=== PATIENT | female | born 1980 | race Caucasian/White ===

== ENCOUNTER 2020-01-20 10:28 | Inpatient (IN) ==
[2020-01-20 11:54] LABS: Appearance Urine Turbid (Clear); Blood Urine Negative (Negative); Color Urine Dark Yellow; Epithelial Cell Urine Auto >30 /lpf (0-5); Glucose Urine UA Negative (Negative); Ketones Urine Trace (Negative); Leukocyte Esterase Urine Negative (Negative); Nitrite Urine Negative (Negative); Protein Urine 2+ (Negative); Specific Gravity Urine 1.032 (1.000-1.030); Urobilinogen Urine Negative (Negative)
[2020-01-20 12:17] LABS: Amphetamines+Metham, Urine Pos (Neg); Barbiturates, Urine Neg (Neg); Benzodiazepine, Urine Pos (Neg); Bilirubin Urine Negative (Negative); Cocaine, Urine Neg (Neg); Ictotest Urine Negative (Negative); MDMA (Ecstacy), Urine Pos (Neg); Methadone, Urine Neg (Neg); Opiate, Urine Neg (Neg); Phencyclidine, Urine Neg (Neg)
[2020-01-20 12:18] LABS: Calcium Oxalate Crystals Urine Present (None Prsent); RBC Urine Automated 0-4 /hpf (0-4)
[2020-01-20 12:19] LABS: Bacteria Urine Automated 2+ (Negative)
[2020-01-20 12:20] LABS: Basophils # (auto) 0.03 K/uL (0-0.2); Basophils % (auto) 0.3 %; Eosinophils # (auto) 0.09 K/uL (0-0.5); Eosinophils % (auto) 0.9 %; Hemoglobin 13.2 g/dL (12.0-16.0); Immature Granulocytes # (auto) 0.02 K/uL (0.00-0.02); Immature Granulocytes % (auto) 0.2 %; Lymphocytes # (auto) 3.27 K/uL (1.2-3.4); Lymphocytes % (auto) 31.8 %; Mean Corpuscular Hemoglobin 28.5 pg (25-34); Mean Corpuscular Hgb Conc 34.7 g/dL (32-36); Mean Corpuscular Volume 82.1 fL (80-100); Mean Platelet Volume 9.3 fL (7.4-10.4); Monocytes # (auto) 0.62 K/uL (0.11-0.59); Neutrophils # (auto) 6.24 K/uL (1.4-6.5); Neutrophils % (auto) 60.8 %; Platelet Count 350 K/uL (130-400); Red Blood Count 4.63 M/uL (4.2-5.4); White Blood Count 10.27 K/uL (4.8-10.8)
[2020-01-20 12:43] LABS: Albumin Level 3.6 gm/dl (3.4-5.0); BUN Creatinine Ratio 10.9 (10-20); Calcium 9.3 mg/dl (8.5-10.1); Creatinine Clr Calc Pharmacy 57.7 ml/min; Est GFR (African American) 59.4; Est GFR (Non-African American) 51.3; Potassium 3.7 mmol/L (3.5-5.1)
[2020-01-20 12:53] LABS: Albumin Globulin Ratio 0.9 (0.9-2); Bilirubin,Total 0.5 mg/dl (0.2-1); Thyroid Stimulating Hormone 1.73 uIu/ml (0.300-4.500); Total Protein 7.6 gm/dl (6.4-8.2)
[2020-01-20 12:55] LABS: Acetaminophen < 2 ug/ml (10-30)
[2020-01-20 12:56] LABS: Salicylate 2.1 mg/dl (2.8-20)
[2020-01-20] MEDS ORDERED: LORazepam 1 MG TAB PO STA (14:23)
--- NOTE | 2020-01-20 14:47 | Emergency Department Note ---
History of Present Illness General Chief complaint: Mental Health Evaluation Stated complaint: SUICIDAL THOUGHTS Time Seen by Provider: 01/20/20 10:43 History of Present Illness Provider complaint: Suicidal ideation Onset (ago): day(s) 2 Maximum Pain Intensity: 0 39-year-old female presents emergency department suicidal homicidal ideation. Patient reports that her son who is 5 months old was found a week ago and they had the recently. She is reports since then she has been extremely depressed and feeling anxious. She is reported suicidal and homicidal ideation. Home Medications Home Medications Medication Instructions Recorded Confirmed Type Control Pill 1 tab PO DAILY 01/20/20 History buprenorphine-naloxone 1.5 tab SUBLINGUAL DAILY 01/20/20 01/20/20 History bupropion HCl [Wellbutrin SR] 150 mg PO DAILY 01/20/20 01/20/20 History duloxetine 60 mg PO DAILY 01/20/20 01/20/20 History pregabalin 100 mg PO TID 01/20/20 01/20/20 History Past Med/Surg History Medical History (Updated 01/20/20 @ 17:10 by Dmitry López) Anxiety Depression No pertinent family history Preeclampsia Surgical History (Updated 01/20/20 @ 14:46 by Dmitry López) S/P section Social History Feels Safe at Home: Yes Smoking Status: Current every day smoker Review of Systems A total of 10 systems reviewed and were otherwise negative Physical Exam Vital Signs Vital Signs - 24 hr 01/20/20 10:31 01/20/20 12:28 01/20/20 15:20 Temperature 37.0 C Temperature Source Oral Pulse Rate 100 H Pulse Rate [Finger] 100 H 93 H Respiratory Rate 18 17 22 Respiratory Depth Normal Blood Pressure 110/71 Blood Pressure [Left Arm] 166/125 H 140/82 Blood Pressure Mean 84 Blood Pressure Mean [Left Arm] 138 101 Blood Pressure Position [Left Arm] Sitting Pulse Oximetry 97 99 98 Oxygen Delivery Method Room Air Room Air Room Air Sepsis Recent Fever Within 48 Hours No Sepsis New/Unexplained Change in Mental Status No Sepsis Action Taken by Nursing No Action Required Physical Exam HENT: Exam performed. -Head: Normocephalic and atraumatic. -Right Ear: External ear normal. No mastoid tenderness. -Left Ear: External ear normal. No mastoid tenderness. -Mouth/Throat: The oropharynx is clear and moist. No trismus in the jaw. No dental abscesses or uvula swelling. No oropharyngeal exudate or tonsillar abscesses. EYES: Conjunctivae and EOM are normal. Pupils are equal, round, and reactive to light. Right eye exhibits no discharge. Left eye exhibits no discharge. No scleral icterus. NECK: Normal range of motion. Neck supple. No JVD present. No spinous process tenderness present. No carotid bruit present. No rigidity. No tracheal deviation and normal range of motion present. No Brudzinski's sign and no Kernig's sign noted. CV: Tachycardic rate, regular rhythm, normal heart sounds and intact distal pulses. There is no peripheral edema. Palpable radial pulses bue. PULM/CHEST: Effort normal and breath sounds normal. No respiratory distress. No stridor. She has no wheezes. She has no rales. -Chest Wall: She exhibits no tenderness. ABD: The abdomen is soft. Bowel sounds are normal. She has no distension. No mass is present. There is no tenderness. There is no rebound, no guarding, no Samaniego's sign and no tenderness at McBurney's point. Rovsig negative MUSC/SKEL: Normal range of motion. There is no peripheral edema, tenderness or deformity. LYMPH: No cervical adenopathy. NEURO: She is alert and oriented to person, place, and time. She has normal strength. No cranial nerve deficit or sensory deficit. Coordination and gait normal. GCS eye subscore is 4. GCS verbal subscore is 5. GCS motor subscore is 6. Cerebellar tests wnl. SKIN: Skin is warm and dry. She is not diaphoretic. PSYCH: Patient is extremely depressed. She is suicidal and homicidal. Patient is crying uncontrollably. Course Course 1145: The patient was evaluated in room A5. A complete history and physical exam was performed. 1515: Vital signs stable. Patient medically cleared. Awaiting psychiatric evaluation/disposition. Patient placed in observation at this time. 1645: Vital signs stable. Patient admitted to the 3 S. psychiatric inpatient unit. Administered Medications Discontinued Medications Lorazepam (Ativan) 1 mg PO NOW STA Stop: 01/20/20 14:24 Last Admin: 01/20/20 14:34 Dose: 1 mg Documented by: [id number] Medical Decision Making Laboratory Data Result diagrams: 01/20/20 12:03 01/20/20 12:03 Lab Results 01/20/20 01/20/20 01/20/20 Range/Units 11:42 11:42 12:03 WBC 10.27 (4.8-10.8) K/uL RBC 4.63 (4.2-5.4) M/uL Hgb 13.2 (12.0-16.0) g/dL Hct 38.0 (37-47) % MCV 82.1 (80-100) fL MCH 28.5 (25-34) pg MCHC 34.7 (32-36) g/dL RDW Std Deviation 39.0 (36.4-46.3) fL RDW Coeff of Jaelyn 13.0 (11.5-14.5) % Plt Count 350 (130-400) K/uL MPV 9.3 (7.4-10.4) fL Immature Gran % (Auto) 0.2 % Neut % (Auto) 60.8 % Lymph % (Auto) 31.8 % [place] % (Auto) 6.0 % Eos % (Auto) 0.9 % Baso % (Auto) 0.3 % Neut # (Auto) 6.24 (1.4-6.5) K/uL Lymph # (Auto) 3.27 (1.2-3.4) K/uL [place] # (Auto) 0.62 H (0.11-0.59) K/uL Eos # (Auto) 0.09 (0-0.5) K/uL Baso # (Auto) 0.03 (0-0.2) K/uL Immature Gran # (Auto) 0.02 (0.00-0.02) K/uL Sodium (136-145) mmol/L Potassium (3.5-5.1) mmol/L Chloride (98-107) mmol/L Carbon Dioxide (21-32) mmol/L Anion Gap (3-11) BUN (7-18) mg/dl Creatinine (0.6-1.2) mg/dl Est Cr Clr Drug Dosing ml/min Est GFR ( Amer) Est GFR (Non-Af Amer) BUN/Creatinine Ratio (10-20) Glucose (70-99) mg/dl Calcium (8.5-10.1) mg/dl Total Bilirubin (0.2-1) mg/dl AST (15-37) U/L ALT (12-78) U/L Alkaline Phosphatase (45-117) U/L Total Protein (6.4-8.2) gm/dl Albumin (3.4-5.0) gm/dl Globulin (2.5-4.0) gm/dl Albumin/Globulin Ratio (0.9-2) TSH (0.300-4.500) uIu/ml Urine Color Dark Yellow Urine Appearance Turbid A (Clear) Urine pH 5.0 (4.5-7.5) Ur Specific [place] 1.032 H (1.000-1.030) Urine Protein 2+ H (Negative) Urine Glucose (UA) Negative (Negative) Urine Ketones Trace H (Negative) Urine Blood Negative (Negative) Urine Nitrite Negative (Negative) Urine Bilirubin Negative (Negative) Urine Urobilinogen Negative (Negative) Ur Leukocyte Esterase Negative (Negative) Urine WBC (Auto) 1-5 (0-5) /hpf Urine RBC (Auto) 0-4 (0-4) /hpf U Hyaline Cast (Auto) Not Reportable U Epithel Cells (Auto) >30 H (0-5) /lpf Urine Bacteria (Auto) 2+ H (Negative) Urine Crystals Not Reportable Calcium Oxalate Crystal Present A (None Prsent) Salicylates (2.8-20) mg/dl Urine Opiates Screen Neg (Neg) Ur Methadone, Qual Neg (Neg) Acetaminophen (10-30) ug/ml Urine Barbiturates Neg (Neg) Ur Phencyclidine (PCP) Neg (Neg) U Amphetamin/Meth Scrn Pos H (Neg) MDMA (Ecstasy) Screen Pos H (Neg) U Benzodiazepines Scrn Pos H (Neg) Ur Cocaine Metabolite Neg (Neg) U Marijuana (THC) Screen Neg (Neg) Ethyl Alcohol mg/dL (0-3) mg/dl 01/20/20 01/20/20 01/20/20 Range/Units 12:03 12:03 12:03 WBC (4.8-10.8) K/uL RBC (4.2-5.4) M/uL Hgb (12.0-16.0) g/dL Hct (37-47) % MCV (80-100) fL MCH (25-34) pg MCHC (32-36) g/dL RDW Std Deviation (36.4-46.3) fL RDW Coeff of Jaelyn (11.5-14.5) % Plt Count (130-400) K/uL MPV (7.4-10.4) fL Immature Gran % (Auto) % Neut % (Auto) % Lymph % (Auto) % [place] % (Auto) % Eos % (Auto) % Baso % (Auto) % Neut # (Auto) (1.4-6.5) K/uL Lymph # (Auto) (1.2-3.4) K/uL [place] # (Auto) (0.11-0.59) K/uL Eos # (Auto) (0-0.5) K/uL Baso # (Auto) (0-0.2) K/uL Immature Gran # (Auto) (0.00-0.02) K/uL Sodium 138 (136-145) mmol/L Potassium 3.7 (3.5-5.1) mmol/L Chloride 104 (98-107) mmol/L Carbon Dioxide 26 (21-32) mmol/L Anion Gap 8.0 (3-11) BUN 14 (7-18) mg/dl Creatinine 1.30 H (0.6-1.2) mg/dl Est Cr Clr Drug Dosing 57.7 ml/min Est GFR ( Amer) 59.4 Est GFR (Non-Af Amer) 51.3 BUN/Creatinine Ratio 10.9 (10-20) Glucose 97 (70-99) mg/dl Calcium 9.3 (8.5-10.1) mg/dl Total Bilirubin 0.5 (0.2-1) mg/dl AST 14 L (15-37) U/L ALT 24 (12-78) U/L Alkaline Phosphatase 149 H (45-117) U/L Total Protein 7.6 (6.4-8.2) gm/dl Albumin 3.6 (3.4-5.0) gm/dl Globulin 4.0 (2.5-4.0) gm/dl Albumin/Globulin Ratio 0.9 (0.9-2) TSH 1.730 (0.300-4.500) uIu/ml Urine Color Urine Appearance (Clear) Urine pH (4.5-7.5) Ur Specific [place] (1.000-1.030) Urine Protein (Negative) Urine Glucose (UA) (Negative) Urine Ketones (Negative) Urine Blood (Negative) Urine Nitrite (Negative) Urine Bilirubin (Negative) Urine Urobilinogen (Negative) Ur Leukocyte Esterase (Negative) Urine WBC (Auto) (0-5) /hpf Urine RBC (Auto) (0-4) /hpf U Hyaline Cast (Auto) U Epithel Cells (Auto) (0-5) /lpf Urine Bacteria (Auto) (Negative) Urine Crystals Calcium Oxalate Crystal (None Prsent) Salicylates 2.1 L (2.8-20) mg/dl Urine Opiates Screen (Neg) Ur Methadone, Qual (Neg) Acetaminophen < 2 L (10-30) ug/ml Urine Barbiturates (Neg) Ur Phencyclidine (PCP) (Neg) U Amphetamin/Meth Scrn (Neg) MDMA (Ecstasy) Screen (Neg) U Benzodiazepines Scrn (Neg) Ur Cocaine Metabolite (Neg) U Marijuana (THC) Screen (Neg) Ethyl Alcohol mg/dL < 3.0 (0-3) mg/dl MDM Narrative Observation note Indication: Psych eval/placement Patient, with history of anxiety, depression, was first seen at 1145 hrs and the observation time began at 1515 hrs and was necessary in order to have psych evaluation completed . Upon re-evaluation, 90 minutes of observation revealed that the patient should be admitted for inpatient psychiatric treatment. Disposition date and time January 20, 2020 1645. Impression & Plan Depression, Suicidal ideation Discharge Plan Visit Data Chief Complaint: Mental Health Evaluation Stated Complaint: SUICIDAL THOUGHTS ED Provider: Dmitry López Discharge Problem: Depression, Suicidal ideation Forms Stand Alone Forms: [facility], Suicide Prevention Resources Prescriptions Prescriptions: No Action bupropion HCl [Wellbutrin SR] 150 mg Tablet Sustained-Release 12 Hr 150 mg PO DAILY RF: 0 Control Pill 1 tab PO DAILY RF: 0 buprenorphine-naloxone 8-2 mg Tablet, Sublingual 1.5 tab SUBLINGUAL DAILY RF: 0 pregabalin 100 mg Capsule 100 mg PO TID RF: 0 duloxetine 60 mg Capsule,Delayed Release(Dr/Ec) 60 mg PO DAILY RF: 0 Referrals Referrals: Guicho Cross MD [Primary Care Provider] - Discharge Problem: Depression Qualifiers: Depression Type: major depressive disorder Major depression recurrence: unspecified whether recurrent Active/Remission status: currently active Major depression episode severity: severe Psychotic features: without psychotic features Qualified Code(s): F32.2 - Major depressive disorder, single episode, severe without psychotic features
[2020-01-20] MEDS ORDERED: ALUMINUM/MAGNESIUM SUSP 30 ML UDC PO PRN (16:29)
[2020-01-20] MEDS ORDERED: MAGNESIUM HYDROXIDE SUSP 30 ML UDC PO PRN (16:29)
[2020-01-20] MEDS ORDERED: SODIUM CHLORIDE 0.65% NA SOLN 45 ML (OCEAN) PRN (16:29)
[2020-01-20] MEDS ORDERED: BISMUTH SUBSALICYLATE PER ML OMNICELL CHARGE PO PRN (16:29)
[2020-01-20] MEDS ORDERED: ACETAMINOPHEN 325 MG TAB PO PRN (16:29)
[2020-01-20] MEDS ORDERED: PATIENT'S ALLERGY INFO NEEDS ENTERED SCH (16:45)
[2020-01-20] MEDS: PREGABALIN 100 MG CAP PO SCH (20:41)
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
[2020-01-21] MEDS ORDERED: BuPROPion SR 150 MG TABCR PO SCH (09:00)
[2020-01-21] MEDS ORDERED: DULOXETINE HCL 60 MG CAP PO SCH (09:00)
[2020-01-21] MEDS: PREGABALIN 100 MG CAP PO SCH ×3 (09:08→21:56)
[2020-01-21] MEDS: BuPROPion XL 150 MG TABCR PO SCH (09:09)
[2020-01-21] MEDS: BUPRENORPHINE/NALOXONE 8/2 MG TAB SL SCH (09:10)
[2020-01-21] MEDS ORDERED: IBUPROFEN 600 MG TAB PO PRN (14:39)
[2020-01-22] MEDS: BuPROPion XL 150 MG TABCR PO SCH (08:42)
[2020-01-22] MEDS: BUPRENORPHINE/NALOXONE 8/2 MG TAB SL SCH (08:42)
[2020-01-22] MEDS: PREGABALIN 100 MG CAP PO SCH (08:42)
--- NOTE | 2020-01-22 11:46 | Psychiatric Progress Note ---
Date of Service January 22, 2020 Impression / Recommendations Impression 39-year-old female with a history of substance abuse and depression who presents with worsening mood and suicidal thoughts in the context of the of her 5-month-old son 2 weeks ago. She presents with some manic symptoms, including racing thoughts and poor sleep, but does not endorse other symptoms of danielito and denies any history of manic episodes. Her UDS is positive for amphetamine/methamphetamine, but she denies substance use and says this is a false positive, and that her drug screens are always positive for meth. She has a history of depression and has been treated with antidepressants in the past, most recently on Wellbutrin XL 150 mg daily. Prior to titrating that further, I would like to get collateral information from her family and records from her current outpatient providers to clarify her diagnoses. It is possible that the manic symptoms are her emotional/grief reaction or related to occult substance use, but could also signify an undiagnosed bipolar disorder. She is on multiple centrally acting medications including Suboxone and pregabalin. Inpatient treatment is medically necessary due to the severity of her symptoms and risk for suicide if discharged. (1) Depression: 01/20 -continue bupropion XL 150 mg daily. -Get collateral information to help clarify diagnosis, as well as outpatient records. -Offer hydroxyzine as needed for anxiety. -Encourage group attendance and participation, work on healthy coping skills and discharge safety plan. -Family meeting with supports. Clarify where patient will be staying after discharge, and refer for outpatient treatment. (2) Opiate addiction: 01/20 - [facility] and [facility], coordinate care. -F/u on UDS + amphetamine/methamphetamine, MDMA, and benzodiazepines. We will avoid benzodiazepines here given concomitant use of multiple other central nervous system depressants, including Suboxone, and risk of respiratory d epression. (3) Chronic pain: 01/20 -continue pregabalin. Get records from PCP. Encourage gentle exercises, stretching, may use heat/ice pads if needed. Tylenol as needed for breakthrough pain. Risk Factors Assessment Male: No : Yes Do You Have Access To A Gun?: No Health Problems: Yes Mental Health Diagnoses: Yes Substance Use Disorders: Yes Previous Attempt: No Family History of Suicide: No Previous Psychiatric Hospitalization: No Hopelessness: No Smoker: Yes Protective Factors Assessment Confucianist Beliefs: No : No Responsible for Young Children: No Employed: No Stable Relationships: No Supportive Family: Yes Good Rapport with Provider: Yes Interval History Identifying Information KELLY SOLOMON is a 39-year-old F who currently lives in [place] with her 17-year-old daughter, has a history of depression and substance abuse, and was admitted on 01/20/20 16:29 on a 201 voluntary commitment for depression and suicidal ideation. Chief Complaint "[]". Review of Systems Notes Constitutional: [denied] Cardiovascular: [denied] Respiratory: [denied] Gastrointestinal: [denied] Neurological: [denied] Psychiatric: [denies symptoms other than stated above] Total of at least 10 systems reviewed, pertinent positives as above and in HPI. Sleep Information Total Hours of Sleep: 7.25 Sleep Comments: pt on q-15 minute checks Meal Information Percent Meal Consumed - Breakfast: 40 Percent Meal Consumed - Lunch: 50 Percent Meal Consumed - Dinner: 80 Nutrition Comment: pt. has upset stomach and poor appetite for several weeks. Ate cereal after a few bites of bkfst Subjective Subjective Patient was seen & assessed and interval progress reviewed with treatment team. Physical Exam Vital Signs (Past 24 Hours) Last Vital Signs Temp 36.7 C 01/22/20 06:37 Pulse 97 H 01/22/20 06:37 Resp 18 01/22/20 06:37 BP 135/82 01/22/20 06:37 Pulse Ox 95 01/20/20 17:27 Results & Data ([facility]) Current Inpatient Medications Current Inpatient Medications: Current Inpatient Medications Acetaminophen (Tylenol) 650 mg PO Q4H PRN PRN Reason: Headache or Minor Fever Stop: 02/19/20 16:28 Last Admin: 01/21/20 11:39 Dose: 650 mg Documented by: Al Hydrox/Mg Hydrox/Simethicone (Maalox) 30 ml PO Q4H PRN PRN Reason: GI Upset Stop: 02/19/20 16:28 Bismuth Subsalicylate (Kaopectate) 15 ml PO PRN PRN PRN Reason: Loose Stool Stop: 02/19/20 16:28 Buprenorphine/Naloxone (Suboxone 8 Mg/2 Mg) 1.5 tab SL DAILY SHINE Stop: 02/20/20 08:59 Last Admin: 01/22/20 08:42 Dose: 1.5 tab Documented by: Bupropion HCl (Wellbutrin-Xl) 150 mg PO QAM SHINE Stop: 02/20/20 08:59 Last Admin: 01/22/20 08:42 Dose: 150 mg Documented by: Hydroxyzine HCl (Vistaril) 50 mg PO HSZ PRN PRN Reason: Insomnia Stop: 02/19/20 16:28 Last Admin: 01/21/20 21:56 Dose: 50 mg Documented by: Hydroxyzine HCl (Vistaril) 25 mg PO Q4H PRN PRN Reason: Anxiety Stop: 02/19/20 16:28 Last Admin: 01/20/20 19:10 Dose: 25 mg Documented by: Ibuprofen (Motrin) 600 mg PO Q6H PRN PRN Reason: Pain Stop: 02/20/20 14:44 Last Admin: 01/21/20 17:41 Dose: 600 mg Documented by: Magnesium Hydroxide (Milk Of Magnesia) 30 ml PO DAILY PRN PRN Reason: Constipation Stop: 02/19/20 16:28 Pregabalin (Lyrica) 100 mg PO TID SHINE Stop: 02/19/20 20:59 Last Admin: 01/22/20 08:42 Dose: 100 mg Documented by: Sodium Chloride ([place] Nasal) 1 - 2 sprays NA PRN PRN PRN Reason: Nasal Dryness/Congestion Stop: 02/19/20 16:28 Post Discharge Appointments Primary Care Physician Name Of Family Doctor: Family Medicine at [facility] - Dr. Cross Primary Care Provider Appointment Comment: [address], [address], [place] [address] Other #1: Name of Aftercare Appointment: [facility] - Jenni Peres Phone Number of Aftercare Appointment: [phone] Aftercare Appointment Comment: [address], [place] [address] Contact Information Discharge Discharge Address: [address] [place] [address], [place] [facility] (1) Depression Active/Remission status: currently active Depression Type: major depressive disorder Major depression episode severity: severe Major depression recurrence: unspecified whether recurrent Psychotic features: without psychotic features Qualified Code(s): F32.2 - Major depressive disorder, single episode, severe without psychotic features
--- NOTE | 2020-01-22 12:34 | Communication Note ---
Date of Service: January 22, 2020 Records reviewed from [facility], Out[facility] in [place]: Most recent appointment 01/17/2020. Diagnoses include opioid dependence, severe, depressive disorder, anxiety disorder. Patient reported mourning her son who unexpectedly, and family turmoil. She said that she was staying with her father, and looking for inpatient psychiatric units to go to. Her drug screen results from 01/17/2020 were positive for benzodiazepines, cocaine, and buprenorphine. On her 12/23/2019 visit, she reported caring for her son and 2 daughters, and denied any substance use. Her drug screen was positive for cocaine and buprenorphine. At her 12/09/2019 visit, she reported she had last used cocaine 3 weeks ago, and had been positive for amphetamines on her most recent visit. Her UDS from 11/25/2019 was positive for amphetamines and buprenorphine.
--- NOTE | 2020-01-22 13:12 | Psychiatric Progress Note ---
Date of Service January 22, 2020 Impression / Recommendations Impression 39-year-old female with a history of substance abuse and depression who presents with worsening mood and suicidal thoughts in the context of the of her 5-month-old son 2 weeks ago. She presents with some manic symptoms, including racing thoughts and poor sleep, but does not endorse other symptoms of danielito and denies any history of manic episodes. Her UDS is positive for amphetamine/methamphetamine, but she denies substance use and says this is a false positive, and that her drug screens are always positive for meth. She has a history of depression and has been treated with antidepressants in the past, most recently on Wellbutrin XL 150 mg daily. Prior to titrating that further, I would like to get collateral information from her family and records from her current outpatient providers to clarify her diagnoses. It is possible that the manic symptoms are her emotional/grief reaction or related to occult substance use, but could also signify an undiagnosed bipolar disorder. She is on multiple centrally acting medications including Suboxone and pregabalin. Inpatient treatment is medically necessary due to the severity of her symptoms and risk for suicide if discharged. (1) Depression: 01/20 -continue bupropion XL 150 mg daily. -Get collateral information to help clarify diagnosis, as well as outpatient records. -Offer hydroxyzine as needed for anxiety. -Encourage group attendance and participation, work on healthy coping skills and discharge safety plan. -Family meeting with supports. Clarify where patient will be staying after discharge, and refer for outpatient treatment. (2) Opiate addiction: 01/20 - [facility], coordinate care. -F/u on UDS + amphetamine/methamphetamine, MDMA, and benzodiazepines. We will avoid benzodiazepines here given concomitant use of multiple other central nervous system depressants, including Suboxone, and risk of respiratory d epression. (3) Chronic pain: 01/20 -continue pregabalin. Get records from PCP. Encourage gentle exercises, stretching, may use heat/ice pads if needed. Tylenol as needed for breakthrough pain. Risk Factors Assessment Male: No : Yes Do You Have Access To A Gun?: No Health Problems: Yes Mental Health Diagnoses: Yes Substance Use Disorders: Yes Previous Attempt: No Family History of Suicide: No Previous Psychiatric Hospitalization: No Hopelessness: No Smoker: Yes Protective Factors Assessment Buddhism Beliefs: No : No Responsible for Young Children: No Employed: No Stable Relationships: No Supportive Family: Yes Good Rapport with Provider: Yes Interval History Identifying Information KELLY SOLOMON is a 39-year-old F who currently lives in [place] with her 17-year-old daughter, has a history of depression and polysubstance abuse (opiates, cocaine, amphetamines), and was admitted on 01/20/20 16:29 on a 201 voluntary commitment for depression and suicidal ideation. Chief Complaint "Good good, then reality sets in, you know?" Review of Systems Sleep Information Total Hours of Sleep: 7.25 Sleep Comments: pt on q-15 minute checks Meal Information Percent Meal Consumed - Breakfast: 40 Percent Meal Consumed - Lunch: 50 Percent Meal Consumed - Dinner: 80 Nutrition Comment: pt. has upset stomach and poor appetite for several weeks. Ate cereal after a few bites of bkfst Subjective Subjective Patient was seen & assessed and interval progress reviewed with treatment team. Staff report she has been labile, sad and tearful at times and other times says she feels "manic" with racing thoughts. She had an extended discussion with the counselor last evening and has been going to some groups. She submitted a 72 hour notice requesting to withdraw from treatment today, and stated she planned to go stay with her father after discharge. Physical Exam Vital Signs (Past 24 Hours) Last Vital Signs Temp 36.7 C 01/22/20 06:37 Pulse 97 H 01/22/20 06:37 Resp 18 01/22/20 06:37 BP 135/82 01/22/20 06:37 Pulse Ox 95 01/20/20 17:27 Results & Data ([facility]) Current Inpatient Medications Current Inpatient Medications: Current Inpatient Medications Acetaminophen (Tylenol) 650 mg PO Q4H PRN PRN Reason: Headache or Minor Fever Stop: 02/19/20 16:28 Last Admin: 01/21/20 11:39 Dose: 650 mg Documented by: Al Hydrox/Mg Hydrox/Simethicone (Maalox) 30 ml PO Q4H PRN PRN Reason: GI Upset Stop: 02/19/20 16:28 Bismuth Subsalicylate (Kaopectate) 15 ml PO PRN PRN PRN Reason: Loose Stool Stop: 02/19/20 16:28 Buprenorphine/Naloxone (Suboxone 8 Mg/2 Mg) 1.5 tab SL DAILY SHINE Stop: 02/20/20 08:59 Last Admin: 01/22/20 08:42 Dose: 1.5 tab Documented by: Bupropion HCl (Wellbutrin-Xl) 150 mg PO QAM SHINE Stop: 02/20/20 08:59 Last Admin: 01/22/20 08:42 Dose: 150 mg Documented by: Hydroxyzine HCl (Vistaril) 50 mg PO HSZ PRN PRN Reason: Insomnia Stop: 02/19/20 16:28 Last Admin: 01/21/20 21:56 Dose: 50 mg Documented by: Hydroxyzine HCl (Vistaril) 25 mg PO Q4H PRN PRN Reason: Anxiety Stop: 02/19/20 16:28 Last Admin: 01/20/20 19:10 Dose: 25 mg Documented by: Ibuprofen (Motrin) 600 mg PO Q6H PRN PRN Reason: Pain Stop: 02/20/20 14:44 Last Admin: 01/21/20 17:41 Dose: 600 mg Documented by: Magnesium Hydroxide (Milk Of Magnesia) 30 ml PO DAILY PRN PRN Reason: Constipation Stop: 02/19/20 16:28 Pregabalin (Lyrica) 100 mg PO TID SHINE Stop: 02/19/20 20:59 Last Admin: 01/22/20 08:42 Dose: 100 mg Documented by: Sodium Chloride (Emmons Nasal) 1 - 2 sprays NA PRN PRN PRN Reason: Nasal Dryness/Congestion Stop: 02/19/20 16:28 Post Discharge Appointments Primary Care Physician Name Of Family Doctor: [facility] at [facility] - Dr. Cross Primary Care Provider Appointment Comment: [address]o [address], [address], [place] [id number] Contact Information Discharge Discharge Address: [address] [place] [address], [place] [id number] (1) Depression Active/Remission status: currently active Depression Type: major depressive disorder Major depression episode severity: severe Major depression recurrence: unspecified whether recurrent Psychotic features: without psychotic features Qualified Code(s): F32.2 - Major depressive disorder, single episode, severe without psychotic features
--- NOTE | 2020-01-22 13:28 | Discharge Summary ---
Date of Service January 22, 2020 History of Present Illness Patient presented to the ER with her father reporting worsening mood and suicidality since the of her 5-month-old son 2 weeks ago. She reported feeling unable to function, feared she was "going crazy," and unable to control her thoughts, feeling, and behavior. She reported thoughts to jump out of a moving vehicle, and stated the only reason she had not ended her life was because she has two daughters, ages 17 and 23. She has not been able to stay at her house since her son because being in the house is too upsetting to her. She has no outpatient mental health providers, and is prescribed medications by her PCP, including buprenorphine, bupropion, lorazepam, Lyrica, and diazepam. She reported insomnia and muscle tension since her son's . She did not feel safe going home, and her father agreed. Admission labs: Normal CBC, CMP notable for creatinine 1.30, alkaline phosphatase 149; TSH 1.730, UA turbid, specific gravity 1.032, 2+ protein, trace ketones, 2+ bacteria, and > 30 epithelial cells. UDS + amphetamine/methamphetamine, MDMA, and benzodiazepines. negative. She signed in for voluntary treatment. On my assessment today, she states she had her father bring her here from [place] because "someone recommended it, and I didn't want to see anyone I knew." She endorses feeling overwhelmed and unable to cope since the of her son 2 weeks ago. She was home alone with her son when he , and says she found him in the morning, but the cause of unknown. She reports a long history of depression but describes it as "mild" prior to his , and worsened acutely over the past 2 weeks. Exacerbated by strained relationship with her ex- boyfriend/father of the baby, and states he and his family are "terrible people, I could tell you horrible things about them all day long." She says that the boyfriend was living with her other child until she broke up with him a few months ago, because he "spent all my money and was using drugs." She says she has some good supports, including her mother, father, 23-year-old daughter (her 17-year-old daughter is currently staying with her 23-year-old), and friends; "I've been treated horribly by some people and wonderfully by others. There's no great area with me." She says she did not go to her son's because her ex-boyfriend insisted on having an open casket, and references "sedating myself." She has been taking both Ativan and Valium, but has not been able to sleep, stating she went several days without sleeping, but slept well last night. She endorses racing thoughts, but denies other symptoms of danielito. She states she has never had these symptoms before. Denies history of psychosis. Her goals are to "get to a healthy place, grief, get on good meds, be able to function, be able to help another mother." She would like a therapist and grief group in her area, noting she likes group therapy. She has also found it helpful to talk to other mothers who have lost children. She would like to get a degree in psychology, and then move "south, I hate the winter," possibly living in a cam[place] on a beach in [place]. She denies recent illicit substance use or taking medication she is not prescribed, states she always has drug screens that are positive for meth, and thinks it is because she takes Benadryl at night. Physical Exam Psychiatric Overweight female appearing older than her stated age. Casually dressed, adequate grooming and hygiene. Seated in no acute distress. Initially calm, cooperative, and pleasant, but became angry and hostile after informed of the mandated CYS report. Initially stated mood was "good, good," improved from admission, euthymic and appropriate. She denies SI, HI, hallucinations and paranoia. No delusions. Speech initially mildly fast, but normal volume and tone. Tone became angry when her drug use/positive drug screens were discussed. Alert and oriented. Poor insight and judgment. Demonstrates limited willingness to be forthcoming with information. Vital Signs (Past 24 Hours) Last Vital Signs Temp 36.7 C 01/22/20 06:37 Pulse 97 H 01/22/20 06:37 Resp 18 01/22/20 06:37 BP 135/82 01/22/20 06:37 Pulse Ox 95 01/20/20 17:27 Principal Diagnosis Mood disorder NOS (depression vs substance induced mood disorder) Substance abuse (cocaine, methamphetamine, benzodiazepines) Opiate use disorder on Suboxone Psychiatric Data Patient was hospitalized for 2 days. She was continued on her home medications without changes. Collateral information was obtained from her father, who reported that she had been more labile and agitated since the of her son, and neither the patient nor her father provided any information consistent with a history of hypomanic or manic episodes. The patient initially reported that she was on Suboxone for chronic pain and that her drug screens were "always" positive for cocaine and amphetamines, but that these were false positive results, and she had not used drugs in years. When records were obtained from her outpatient clinician, they revealed that she has had chronic cocaine and methamphetamine use, with multiple positive drug screens over the past 2 months. Inpatient rehab was recommended but declined. The patient submitted a 72-hour notice requesting to withdrawal from treatment, dating that she wanted more intensive individual therapy, although she met with a counselor for an extended period of time on her first day in the hospital. She gave conflicting reports, for example at times praised staff and stated she was glad she had come in for treatment and that it was helpful, and moments later berated staff and the program, stating it was not helpful for her. She did consistently deny suicidal thoughts, did not engage in self-injurious behavior, and stated that she did not think she would ever actually hurt herself because of her children. She met with the psych social worker and discussed a plan to stay with her father and/or friend in the [place] area after discharge, until she could get her own place. Her father was contacted to schedule a family meeting, but the patient then requested to leave [facility]. Day of Discharge Assessment Patient was seen & assessed and interval progress reviewed with treatment team. Staff report she has been labile, sad and tearful at times and other times says she feels "manic" with racing thoughts. She had an extended discussion with the counselor last evening and has been going to some groups. She slept well overnight, 7.25 hours. She is eating well, and taking medications as prescribed. She submitted a 72 hour notice requesting to withdraw from treatment today, and stated she planned to go stay with her father after discharge. On my assessment she reports she is doing well, feels "good" at times but other times feels very sad, like the of her son is just hitting her. She denies SI and says she doesn't think she would hurt herself because of her two daughters, but prior to coming to the hospital, was having brief periods of feeling overwhelmed when riding in a vehicle, with urges to "just jump out." She denies any thoughts of hurting herself and says she is motivated to "fight" to get well for her daughters and family. She says she submitted the 72 hour notice because she "didn't know it was going to be like this, thought I was going to get more therapy, not someone looking at their watch." Her records from [facility] were received and reviewed in a separate note, and revealed ongoing cocaine, amphetamine and benzodiazepine use as well as Suboxone. Spoke with Jenni Peres NP at [facility] who reports the patient has been seen there since 08/16/18 and her drug screen is "always" positive for cocaine, including the confirmatory tests, and that she has only had a couple drug screens that did not contain cocaine. She has had multiple UDS + for methamphetamine, including the confirmatory tests. She had drug tests showing drug use during and they made a CYS report at that time. Discussed this information with the patient, who initially stated it must be an error, as she has not done drugs since she was . Again reviewed the lab results, as well as her own statements in the record within the past 2 months admitting to using cocaine, and she responded that she might have used cocaine and just forgotten about it. Informed her that a mandated CYS report would be made per [place], and inquired if they had been involved prior to this, which she adamantly denied. Transition of Care Transition Of Care Record: was reviewed with the patient Advance Directives Advance Directives Information Provided: Yes Advance Directives: No Mental Health Advance Directive: No Advance Directives on File: No Living Will: No Power of Parole Officer: No Advance Directives Reason:: Declines as Mental Health Visit. Risk Factors Assessment Risk factors were mitigated by admission to the inpatient unit, use of medications to target mood symptoms, education about her diagnoses and the recommended treatment, education about the risks of substance abuse and recommendations for inpatient rehab which she has refused, recommendations for a family meeting which she is refusing, encouraging participation in groups and programming, working on healthy coping skills and a discharge safety plan, and recommendations for outpatient mental health treatment, which she is refusing as she has requested to leave AMA. Although she refused to sign discharge releases, care was coordinated with her current prescribing clinicians, specifically the ones that are prescribing her various controlled substances, due to the risk of harm given her polysubstance abuse and lack of honesty in treatment. She is consistently denied SI here, has not engaged in self- injurious behavior, has consistently denied thoughts of harming others and has not been aggressive or threatening. She is requesting to leave, does not meet involuntary commitment criteria, and is not at acute risk of harm to herself or others. She is at chronic increased risk compared to the general population for harm to herself, but her remaining risk factors, namely mood symptoms, polysubstance abuse, psychosocial disarray, and recent loss, are not amenable to inpatient treatment. Further, she does not meet involuntary commitment criteria, and I believe that the risks of holding her here in the hospital for a longer period of time against her will (worsening mood, increased anger, damaged rapport, decreased chances of seeking inpatient treatment in the future if needed) outweigh the potential benefits. Male: No : Yes Do You Have Access To A Gun?: No Health Problems: Yes Mental Health Diagnoses: Yes Substance Use Disorders: Yes Previous Attempt: No Family History of Suicide: No Previous Psychiatric Hospitalization: No Hopelessness: No Smoker: Yes Protective Factors Assessment Mu-Ism Beliefs: No : No Responsible for Young Children: No Employed: No Stable Relationships: No Supportive Family: Yes Good Rapport with Provider: Yes Tobacco Cessation at Discharge Tobacco Cessation Medication Prescribed at Discharge: Offered & Pt Refused Total Time Total Time Spent: Greater Than 30 Minutes Total Time Includes: Examination of the patient, Discharge Planning, Medication Reconciliation, Communication with other providers (Yamel Peres, PRESCHOOL TEACHER, and Dr. Guicho Cross, PCP) and As well as (CYS report) Discharge Data Lab Results 01/20/20 01/20/20 01/20/20 11:42 11:42 12:03 WBC 10.27 RBC 4.63 Hgb 13.2 Hct 38.0 MCV 82.1 MCH 28.5 MCHC 34.7 RDW Std Deviation 39.0 RDW Coeff of Jaelyn 13.0 Plt Count 350 MPV 9.3 Immature Gran % (Auto) 0.2 Neut % (Auto) 60.8 Lymph % (Auto) 31.8 [place] % (Auto) 6.0 Eos % (Auto) 0.9 Baso % (Auto) 0.3 Neut # (Auto) 6.24 Lymph # (Auto) 3.27 Kitt[place] # (Auto) 0.62 H Eos # (Auto) 0.09 Baso # (Auto) 0.03 Immature Gran # (Auto) 0.02 Sodium Potassium Chloride Carbon Dioxide Anion Gap BUN Creatinine Est Cr Clr Drug Dosing Est GFR ( Amer) Est GFR (Non-Af Amer) BUN/Creatinine Ratio Glucose Calcium Total Bilirubin AST ALT Alkaline Phosphatase Total Protein Albumin Globulin Albumin/Globulin Ratio TSH Urine Color Dark Yellow Urine Appearance Turbid A Urine pH 5.0 Ur Specific [place] 1.032 H Urine Protein 2+ H Urine Glucose (UA) Negative Urine Ketones Trace H Urine Blood Negative Urine Nitrite Negative Urine Bilirubin Negative Urine Urobilinogen Negative Ur Leukocyte Esterase Negative Urine WBC (Auto) 1-5 Urine RBC (Auto) 0-4 U Hyaline Cast (Auto) Not Reportable U Epithel Cells (Auto) >30 H Urine Bacteria (Auto) 2+ H Urine Crystals Not Reportable Calcium Oxalate Crystal Present A Salicylates Urine Opiates Screen Neg Ur Methadone, Qual Neg Acetaminophen Urine Barbiturates Neg Ur Phencyclidine (PCP) Neg U Amphetamin/Meth Scrn Pos H MDMA (Ecstasy) Screen Pos H U Benzodiazepines Scrn Pos H Ur Cocaine Metabolite Neg U Marijuana (THC) Screen Neg Ethyl Alcohol mg/dL 01/20/20 01/20/20 01/20/20 12:03 12:03 12:03 WBC RBC Hgb Hct MCV MCH MCHC RDW Std Deviation RDW Coeff of Jaelyn Plt Count MPV Immature Gran % (Auto) Neut % (Auto) Lymph % (Auto) [place] % (Auto) Eos % (Auto) Baso % (Auto) Neut # (Auto) Lymph # (Auto) [place] # (Auto) Eos # (Auto) Baso # (Auto) Immature Gran # (Auto) Sodium 138 Potassium 3.7 Chloride 104 Carbon Dioxide 26 Anion Gap 8.0 BUN 14 Creatinine 1.30 H Est Cr Clr Drug Dosing 57.7 Est GFR ( Amer) 59.4 Est GFR (Non-Af Amer) 51.3 BUN/Creatinine Ratio 10.9 Glucose 97 Calcium 9.3 Total Bilirubin 0.5 AST 14 L ALT 24 Alkaline Phosphatase 149 H Total Protein 7.6 Albumin 3.6 Globulin 4.0 Albumin/Globulin Ratio 0.9 TSH 1.730 Urine Color Urine Appearance Urine pH Ur Specific [place] Urine Protein Urine Glucose (UA) Urine Ketones Urine Blood Urine Nitrite Urine Bilirubin Urine Urobilinogen Ur Leukocyte Esterase Urine WBC (Auto) Urine RBC (Auto) U Hyaline Cast (Auto) U Epithel Cells (Auto) Urine Bacteria (Auto) Urine Crystals Calcium Oxalate Crystal Salicylates 2.1 L Urine Opiates Screen Ur Methadone, Qual Acetaminophen < 2 L Urine Barbiturates Ur Phencyclidine (PCP) U Amphetamin/Meth Scrn MDMA (Ecstasy) Screen U Benzodiazepines Scrn Ur Cocaine Metabolite U Marijuana (THC) Screen Ethyl Alcohol mg/dL < 3.0 Hospital Course (1) Depression: 01/20 -continue bupropion XL 150 mg daily. -Get collateral information to help clarify diagnosis, as well as outpatient records. -Offer hydroxyzine as needed for anxiety. -Encourage group attendance and participation, work on healthy coping skills and discharge safety plan. -Family meeting with supports. Clarify where patient will be staying after discharge, and refer for outpatient treatment. 01/21 -differential includes major depression, substance-induced mood disorder, personality disorder -Much more significant substance abuse uncovered during hospitalization. UDS positive amphetamine/methamphetamine, with multiple recent UDS positive for meth. Presenting symptoms consistent with meth intoxication and now withdrawal. -Home dose of bupropion XL was continued. Patient is requesting AMA discharge, and outpatient treatment was not arranged due to her unwillingness to cooperate. We have recommended inpatient rehab followed by outpatient psychiatric care and therapy, with intensive outpatient substance abuse treatment, all of which she is refusing. -Provide information about local resources and crisis number. (2) Opiate addiction: 01/20 - Get records from [facility] and confirm dose, coordinate care. -F/u on UDS + amphetamine/methamphetamine, MDMA, and benzodiazepines. We will avoid benzodiazepines here given concomitant use of multiple other central nervous system depressants, including Suboxone, and risk of respiratory depression. 01/21 -spoke with her outpatient Suboxone clinician as above. Multiple recent drug screens positive for cocaine and meth, they report her drug screens there are chronically positive for cocaine and meth. Informed her PCP of this, given acute safety concern w/ patient requesting and receiving multiple recent prescriptions for benzodiazepines and risks of polypharmacy including intentio nal or unintentional overdose/. (3) Chronic pain: 01/20 -continue pregabalin. Get records from PCP. Encourage gentle exercises, stretching, may use heat/ice pads if needed. Tylenol as needed for breakthrough pain. (4) Cocaine abuse: (5) Methamphetamine abuse: Post Discharge Appointments Primary Care Physician Name Of Family Doctor: [facility] at [facility] - Dr. Cross Primary Care Provider Appointment Comment: [address], [address], [place] [address] Smoking Cessation Counseling Tobacco Cessation Medication Prescribed at Discharge: Offered & Pt Refused Contact Information Discharge Discharge Address: [address] [place] [address], [place] [address] Discharge Plan Discharge Items Patient Disposition: Against Medical Advice Reason For Visit: MDR Discharge Diagnosis: Substance abuse Depression NOS Activity: Per Instructions section Non-emergency contact: Primary Care Provider Call non-emergency contact if: you have any medication questions and your symptoms worsen Follow-up/Referrals: Guicho Cross MD [Primary Care Provider] - Diet: Regular Addtl Attending Provider Instructions: SPECIAL CARE INSTRUCTIONS: 1. Follow through with your scheduled aftercare appointments. If unable to keep an appointment, please call to reschedule. --We recommend inpatient rehab for ongoing substance abuse. --We recommended follow-up with a psychiatrist and therapist, but she were leaving [facility] and did not allow appointments to be made. 2. Take your medication only as prescribed. Medication should not be changed or stopped without the approval of your doctor. In the event of worsening symptoms or concerns about side effects, contact your doctor immediately. 3. Utilize new healthy coping skills, anger management skills, and stress management skills learned during your hospitalization. Journal feelings and process them with a support person. Identify stressors or situations that may result in relapse, deterioration or inappropriate behaviors and develop a plan to deal with those issues. 4. If your coping skills are ineffective and you are in crisis, contact your outpatient providers for direction. If unable to reach your providers, please call the CAN HELP LINE AT or go to the closest Emergency Room. 5. You should not drink alcohol or take un-prescribed drugs. 6. You have been provided with the Mental Health Advance Directives Pamphlet for your review. AFTERCARE APPOINTMENTS: * Please call your insurance company prior to your scheduled appointment to confirm your aftercare providers are covered. Take your insurance information to your appointments. WHO TO CALL AND WHEN: Medical Emergencies: For questions or emergencies related to your hospital stay, please contact the Inpatient Behavioral Health Unit at [phone]. A intensive care specialist is on-call 13/02 for the Behavioral Health Unit for emergencies At any time you feel your situation is an emergency, you may also call 911 immediately. Your Doctors Instructions noted above were prepared by provider Bhavya Slade MD. Pending Studies at Discharge: Yes Studies:: Admission drug screen positive for amphetamine/methamphetamine, MDMA, and benzodiazepines. Confirmatory tests pending. Stand-Alone Forms: My [facility], Smoking Cessation, Suicide Prevention Resources Medications and DC Order Prescriptions: Continued buprenorphine-naloxone 8-2 mg Tablet, Sublingual 1.5 tab SUBLINGUAL DAILY RF: 0 pregabalin 100 mg Capsule 100 mg PO TID RF: 0 bupropion HCl 150 mg tablet extended release 24 hr 150 mg PO DAILY RF: 0 Discharge Orders: Left Against Medical Advice (Routine); Ordered 01/22/20 Ordered By: Bhavya Slade Admission Data Admit Date/Time: 01/20/20 16:29 Attending Provider: Bhavya Slade Admit Provider: Bhavya Slade Primary Care Provider: Guicho Cross Other Interventions: Discharge Summary Assessment (RN) Last Done: 01/22/20 14:29 PSY Interdisciplinary Discharge Planning Last Done: 01/22/20 14:11 DC Date/Time DO NOT enter until pt leaves facility: 01/22/20 14:38 Coding Level of Care Code 92778 D/C day mgmt > 30 min Diagnoses Depression F32.2 Active/Remission status: currently active Depression Type: major depressive disorder Major depression episode severity: severe Major depression recurrence: unspecified whether recurrent Psychotic features: without psychotic features Opiate addiction F11.20 Chronic pain G89.29 Cocaine abuse F14.10 Methamphetamine abuse F15.10
[2020-01-23 12:59] LABS: 7-Aminoclonaz, Confirm NEGATIVE ng/mL (<25); Amphetamine Urine, Confirm 13900 ng/mL (<250); Hydro-Alp Ur, GC/MS NEGATIVE ng/mL (<25); Hydroxyethylflurazepam, Conf NEGATIVE ng/mL (<50); Hydroxymidazolam Ur, GC/MS NEGATIVE ng/mL (<50); Hydroxytriazolam NEGATIVE ng/mL (<50); Lorazepam, Ur GC/MS 1390 ng/mL (<50); MDA negative; MDEA negative; MDMA (Ecstasy) Urine, Confirm negative; Methamphetamine, Ur Confirm >15000 ng/mL (<250); Nordiazepam, Confirm 610 ng/mL (<50); Oxazepam Ur, GC/MS 642 ng/mL (<50); Temazepam, Confirm 882 ng/mL (<50)
== END 2020-01-22 14:38 | disposition left against medical advice (07) | DRG 885 ==
LOC: ED 10:28 → 3S 16:29